=== PATIENT | female | born 1990 ===

== ENCOUNTER 2022-05-16 17:15 | Emergency (ER) | payer BC, SELFPAY ==
[2022-05-16 17:21] VITALS: BP 116/74; PULSE 77; RESP 18; O2SAT 97; BMI 31.9
--- NOTE | 2022-05-16 17:57 | ED_ITS ---
HPI - Ear Problem General Chief complaint: Ear/Nose/Throat Problem Stated complaint: LEFT EAR INFECTION Time Seen by Provider: 05/16/22 17:38 History of Present Illness HPI Narrative: This 31-year-old female comes in reporting pain in her left ear that started last evening. She does not report any fevers, nausea, vomiting, sore throat, cough, or nasal congestion. She does use a Q-tip regularly in both ears. Related Data Previous Rx's Medication Instructions Recorded ketorolac 10 mg tablet 10 mg PO Q8H 5 days #15 tabs 05/16/22 Allergies Allergy/AdvReac Type Severity Reaction Status Date / Time No Known Drug Allergies Allergy Verified 05/16/22 17:21 Review of Systems Status of ROS: Reports: 10 or more systems reviewed and unremarkable except as noted in History and below Narrative: Constitutional: No fevers, no weight gain or loss. Eyes: No discharge. No vision changes. HENT: No congestion, no sore throat . Left ear pain as described above. Cardiovascular: No chest pain, no palpitations. Respiratory: No shortness of breath, no wheezes, no cough. Gastrointestinal: No abdominal pain, no vomiting, no diarrhea. Genitourinary: No dysuria, no hematuria. Musculoskeletal: Normal range of motion. Skin: No rashes, no pruritis. Neurological: No dizziness, weakness, sensory change, speech change. Endo/Heme/Allergies: No bruising or bleeding. No polydipsia. Pysch: no suicidality, no anxiety, no insomnia. All other systems reviewed and are negative. PFSH PFSH Social History Smoking Status: Former smoker Do you use any of these nicotine containing products: None Second hand tobacco smoke exposure: No How often do you have a drink containing alcohol: monthly or less How many standard drinks containing alcohol do you have on a typical day: 1 or 2 How often do you have six or more drinks on one occasion: Less than monthly AUDIT-C Alcohol total score: 2 Non-prescribed substance use: denies use service: No Exam Narrative: Exam Narrative: Constitutional: Well-developed, well-nourished, no acute distress. HEENT: Normocephalic, atraumatic. Right tympanic membrane and left tympanic membrane both appear normal. The left ear canal has some erythema. There is no discharge or sign of infection. Neck: Normal range of motion. Nontender. Supple. Heart: Regular. No murmurs. Normal rate. Intact distal pulses. Lungs: Clear to auscultation. No chest discomfort. No wheezes, rhonchi, or rales. Abdomen: Normal bowel sounds. Nontender. No rebound tenderness. Genitalia: Deferred. Back: No midline tenderness. Normal range of motion. Extremities: Normal range of motion. No injury. Skin: Intact. No rash. Warm. No erythema or pallor. Neurologic: No altered sensation. No weakness. Alert and oriented. Psychiatric: No suicidality. No anxiety or depression. No insomnia. Nursing notes and vitals signs are reviewed. Const: Vital Signs, click to edit/add: Vital Signs - 24 hr 05/16/22 17:21 05/16/22 18:05 Temperature 98.3 F Pulse Rate [Pulse Oximeter] 77 Respiratory Rate 18 Blood Pressure [Ri ght Upper Arm] 116/74 Pulse Oximetry 97 Oxygen Delivery Me thod Room Air Course Vital Signs Vital signs: Initial Vital Signs Temperature Source Temporal Artery Scan 05/16/22 17:21 Pulse Rate 77 05/16/22 17:21 Pulse Rhythm 05/16/22 17:21 Respiratory Rate 18 05/16/22 17:21 Blood Pressure 116/74 05/16/22 17:21 Blood Pressure Mean 88 05/16/22 17:21 Blood Pressure Position Supine 05/16/22 17:21 Pulse Oximetry 97 05/16/22 17:21 Oxygen Delivery Method 05/16/22 17:21 Vital Signs Pulse Rate 77 05/16/22 17:21 Respiratory Rate 18 05/16/22 17:21 Blood Pressure 116/74 05/16/22 17:21 Pulse Oximetry 97 05/16/22 17:21 Oxygen Delivery Method 05/16/22 17:21 Temperature 98.3 F 05/16/22 18:05 Pulse Rate 77 05/16/22 17:21 Respiratory Rate 18 05/16/22 17:21 Blood Pressure 116/74 05/16/22 17:21 Pulse Oximetry 97 05/16/22 17:21 Oxygen Delivery Method 05/16/22 17:21 Medical Decision Making MDM Narrative Medical decision making narrative: This patient has pain in her left ear. The only finding that correlates with this is some erythema in the canal itself. There is no swelling or drainage or other sign that is suspicious for infection. She does use a Q-tip regularly in this may be causing irritation. Her symptoms started last evening so at this point to may not yet see something that is possible to become more clear to explain the patient's discomfort. She did receive a prescription for Toradol. I advised her to avoid placing anything in her ear for a good while to allow healing to occur. Discharge Plan Discharge Clinical Impression: Acute otalgia Patient Disposition: Home, Self-Care Condition: Unchanged Instructions: Earache (ED) Additional Instructions: take medication as needed and indicated. Follow up with MD or return if worsening symptoms occur. Prescriptions: New ketorolac 10 mg tablet 10 mg PO Q8H 5 Days Qty: 15 0RF Follow Up/Referrals: Provider,Not a Local [Primary Care Provider] - Stand Alone Forms: [employer] Info Instructions
[2022-05-16 18:05] VITALS: TEMP 36.8
== END 2022-05-16 18:48 | disposition home or self-care (01) ==
PROVIDERS: Emergency Provider Emergency Medicine Emergency Medical Services
DX: H92.02 Otalgia, left ear (principal)
CPT/HCPCS: 99282; 99284